=== PATIENT | male | born 1970 | race African-American/Black ===

== ENCOUNTER 2017-11-14 20:09 | Emergency (ER) ==
[2017-11-14 20:19] VITALS: BP 165/88; TEMP 98; BMI 34.4
--- NOTE | 2017-11-14 20:21 | ED.PDOC ---
General ED Provider: Dr. EDWARD KINGSTON-ER Chief Complaint: Shoulder Pain/Injury Stated Complaint: i hurt my shoulder Time Seen by Physician: 20:20 Mode of Arrival: Walk-In Information Source: Patient Exam Limitations: No limitations Primary Care Provider: [facility] Nursing and Triage Documentation Reviewed and Agree: Yes Reviewed sepsis parameters & appropriate labs ordered?: Yes System Inflammatory Response Syndrome: Not Applicable Sepsis Protocol: For patient's 13 years and over: Temp is 96.8 and below OR 101 and greater Pulse >90 BPM Resp >20/minute Acutely Altered Mental Status Are patient's symptoms suggestive of a new infection, such as: -Pneumonia -Skin, Soft Tissue -Endocarditis -UTI -Bone, Joint Infection -Implantable Device -Acute Abdominal Infection -Wound Infection -Meningitis -Blood Stream Catheter Infection -Unknown Musculoskeletal Complaint Exam - Shoulder Pain Complaint/Exam Mechanism of Injury: Reports: Trauma Onset/Duration: one hour Symptoms Are: Still present Timing: Constant Initial Severity: Mild Current Severity: Mild Location: Reports: Discrete Character: Reports: Dull, Aching Aggravating: Reports: Movement, Lifting, Flexion, Extension, Internal rotation, External rotation Associated Signs and Symptoms: Denies: Swelling, Redness, Bruising, Fever, Weakness, Numbness, Tingling DVT Risk Factors: Reports: None Tenderness: Present: Proximal humerus, Rotator cuff muscles Limited Range of Motion: Present: Abduction, Adduction, Flexion Differential Diagnoses: AC Seperation, Arthritis, Closed Fracture, Rotator Cuff Injury Review of Systems - Review Of Systems Constitutional: Reports: No symptoms Eyes: Reports: No symptoms Ears, Nose, Mouth, Throat: Reports: No symptoms Respiratory: Reports: No symptoms Cardiac: Reports: No symptoms GI: Reports: No symptoms : Reports: No symptoms Musculoskeletal: Reports: Joint pain, Muscle pain Skin: Reports: No symptoms Neurological: Reports: No symptoms Endocrine: Reports: Intolerance to heat Hematologic/Lymphatic: Reports: No symptoms All Other Systems: Reviewed and Negative Past Medical History - Past Medical History Previously Healthy: No Endocrine: Reports: Unknown Cardiovascular: Reports: Unknown Respiratory: Reports: Unknown Hematological: Reports: Unknown Gastrointestinal: Reports: Unknown Genitourinary: Reports: Unknown Neuro/Psych: Reports: Unknown Musculoskeletal: Reports: Unknown Cancer: Reports: Unknown - Surgical History General Surgical History: Reports: Unknown - Family History Family History: Reports: Unknown - Social History Smoking Status: Never smoker Hx Substance Use: No Alcohol Screening: Occasionally - Immunizations Tetanus Shot up to Date: Yes Physical Exam - Physical Exam Appearance: Well-appearing, No pain distress, Well-nourished Pain Distress: Mild Eyes: SARAH, EOMI, Conjunctiva clear ENT: Ears normal, Nose normal, Oropharynx normal Neck: Supple Respiratory: Airway patent Cardiovascular: RRR, Pulses normal, No rub, No murmur GI/: Soft, Nontender, No masses, Bowel sounds normal, No Organomegaly Musculoskeletal: Limited ROM, Limited strength Skin: Warm, Dry, Normal color Neurological: Sensation intact Psychiatric: Affect appropriate Interpretation - Radiology Interpretation Radiology Interpretation By: ED Physician Radiology Results: Negative Critical Care Note - Critical Care Note Total Time (mins): 0 Course - Course Orders, Labs, Meds: Orders Category Date Time Status Hydrocodone Bit/Acetaminophen [Vincent 7.5-325] MEDS 11/14/17 20:54 Stat 1 tab PO ONCE STA SHOULDER, RIGHT MIN 2V Stat RADS 11/14/17 20:18 Taken Vital Signs: Temp Pulse Resp BP Pulse Ox 11/14/17 20:13 98 F 108 H 16 165/88 H 95 Departure - Departure Time of Disposition: 20:55 Disposition: HOME SELF-CARE Discharge Problem: Injury of shoulder region Instructions: Rotator Cuff Injury (ED) Condition: Good Pt referred to PMD for follow-up: Yes IPMP verified?: No Additional Instructions: norco 7.5mg q 4hrs prn pain #12--f/u with dr mc and consider MRI of the shoulder Allergies/Adverse Reactions: Allergies No Known Allergies Allergy (Unverified 11/14/17 20:16) Home Medications: Ambulatory Orders Amlodipine Besylate [Norvasc] 10 mg PO DAILY 11/14/17 Lisinopril [Zestril] 10 mg PO DAILY 11/14/17 Disposition Discussed With: Patient, Family
[2017-11-14] MEDS: NORCO 7.5-325 PO STA (21:01)
--- NOTE | 2017-11-14 21:11 | DI ---
EXAM: Three views of the right shoulder. HISTORY: Shoulder injury. FINDINGS: The bones are intact with no evidence of fracture. The joint spaces are maintained. There is degenerative spurring along the inferior margin of the acromion. No soft tissue abnormality. Impression: No evidence of fracture. Degenerative change as described.
== END 2017-11-14 21:00 | disposition home or self-care (01) ==
LOC: ED 20:09
DX: S46.001A Unspecified injury of muscle(s) and tendon(s) of the rotator cuff of right shoulder, initial encounter (principal)
CPT/HCPCS: 99282